=== PATIENT | female | born 1975 | race Caucasian/White ===

== ENCOUNTER 2025-03-20 08:24 | Observation (INO) ==
--- NOTE | 2025-03-05 13:20 | PAT Medication Instructions ---
Medication Instructions Date of Service March 05, 2025 Home Medications aripiprazole 2 mg tablet 2 mg PO HS aripiprazole 20 mg tablet 20 mg PO HS cholecalciferol (vitamin D3) 125 mcg (5,000 unit) tablet (Vitamin D3) 125 mcg PO QAM famotidine 20 mg tablet 20 mg PO QAM fluvoxamine 100 mg tablet 100 - 200 mg PO BID levothyroxine 50 mcg tablet 50 mcg PO QAM lisdexamfetamine 70 mg capsule (Vyvanse) 70 mg PO QAM oxycodone-acetaminophen 5 mg-325 mg tablet (Percocet) 0.5 tab PO QAM pantoprazole 40 mg tablet,delayed release 40 mg PO BID prazosin 2 mg capsule 2 mg PO HS propranolol 80 mg tablet 80 mg PO QAM zolpidem 5 mg tablet 5 mg PO HS DO NOT take the morning of surgery cholecalciferol (vitamin D3) 125 mcg (5,000 unit) tablet (Vitamin D3) 125 mcg PO QAM lisdexamfetamine 70 mg capsule (Vyvanse) 70 mg PO QAM Take morning of surgery With a small sip of water, OTHERWISE NOTHING TO EAT OR DRINK AFTER MIDNIGHT: famotidine 20 mg tablet 20 mg PO QAM fluvoxamine 100 mg tablet 100 - 200 mg PO BID levothyroxine 50 mcg tablet 50 mcg PO QAM oxycodone-acetaminophen 5 mg-325 mg tablet (Percocet) 0.5 tab PO QAM pantoprazole 40 mg tablet,delayed release 40 mg PO BID propranolol 80 mg tablet 80 mg PO QAM Take evening before surgery aripiprazole 2 mg tablet 2 mg PO HS aripiprazole 20 mg tablet 20 mg PO HS fluvoxamine 100 mg tablet 100 - 200 mg PO BID pantoprazole 40 mg tablet,delayed release 40 mg PO BID prazosin 2 mg capsule 2 mg PO HS zolpidem 5 mg tablet 5 mg PO HS Other Notes If you have any questions please call us at [phone] or [phone] or [phone] or [phone]
--- NOTE | 2025-03-06 09:06 | Anesthesiology Consultation ---
Date of Service March 06, 2025 Assessment & Plan (1) Encounter for pre-operative examination: - Check test DOS - Infectious disease screening: Per assessment on 03/06/25- No known recent infectious disease contacts or current infectious disease symptoms. - Patient concern: Patient states she grinds teeth so hard that she will break teeth and requests that bite block be used during surgery. - Patient acceptable risk for surgery pending surgeon-ordered PCP preop evaluation (Tomás GODDARD, appt 03/18). Chart Review Chart Review: Patient seen in Pre Admission Testing Teaching & Discussion Pre-Anesthesia Teaching/Discussion Notes: Instructed NPO after midnight before surgery,except medications with 15 cc of water. Medication instructions provided according to the PAT guidelines. History Surgery Operation Date: 03/20/25 11:05 Proposed Procedures p L5-S1 Decompression and Fusion - Yassine Walden DO Height/Weight Height: 5 ft 6.5 in Weight: 104.6 kg Allergies Allergy/AdvReac Type Severity Reaction Status Date / Time ciprofloxacin Allergy Severe Cannot Verified 03/06/25 09:03 take d/t paty danlos syndrome clindamycin Allergy Severe Anaphylaxis Verified 03/05/25 11:42 nickel Allergy Intermediate Ears Verified 03/06/25 09:03 "flares up" with earrings > "get infected" Penicillins Allergy Intermediate Rash, Verified 03/06/25 09:03 diarrhea [id number] Reductase Allergy Intermediate Blisters Verified 03/06/25 09:03 Inhibitor "with sun" duloxetine [From Cymbalta] AdvReac Intermediate "Made me Verified 03/06/25 09:03 manic" Medications Home Medications Medication Instructions Recorded Confirmed Last Taken aripiprazole 2 mg tablet 2 mg PO HS 03/05/25 03/05/25 Unknown aripiprazole 20 mg tablet 20 mg PO HS 03/05/25 03/05/25 Unknown cholecalciferol (vitamin D3) 125 125 mcg PO QAM 03/05/25 03/05/25 Unknown mcg (5,000 unit) tablet (Vitamin D3) famotidine 20 mg tablet 20 mg PO QAM 03/05/25 03/05/25 Unknown fluvoxamine 100 mg tablet 100 - 200 mg PO BID 03/05/25 03/05/25 Unknown levothyroxine 50 mcg tablet 50 mcg PO QAM 03/05/25 03/05/25 Unknown lisdexamfetamine 70 mg capsule 70 mg PO QAM 03/05/25 03/05/25 Unknown (Vyvanse) oxycodone-acetaminophen 5 mg-325 0.5 tab PO QAM 03/05/25 03/05/25 Unknown mg tablet (Percocet) pantoprazole 40 mg tablet,delayed 40 mg PO BID 03/05/25 03/05/25 Unknown release prazosin 2 mg capsule 2 mg PO HS 03/05/25 03/05/25 Unknown propranolol 80 mg tablet 80 mg PO QAM 03/05/25 03/05/25 Unknown zolpidem 5 mg tablet 5 mg PO HS 03/05/25 03/05/25 Unknown Imodium 1 tab PO DAILY PRN Diarrhea 03/06/25 03/06/25 Unknown Melatonin Gummy 2 gummy PO HS 03/06/25 Unknown Past Medical History Medical History Anxiety Attention deficit disorder (ADD) Bipolar disorder Depression 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 Essential tremor Hands Fibromyalgia Floyd thyroiditis History of kidney stones IBS (irritable bowel syndrome) Migraine Osteoarthritis Post traumatic stress disorder Sleep apnea Non-compliant with CPAP Temporomandibular joint disorder Wears bite block at night Exercise / Class Metabolic Activity III < 4 Walking/Shop/Light housework (one FS: No CP, + SOB) Past Family History Family History Father Family history of reaction to anesthesia "My Father stopped breathing during his gallbladder removal, roughly 4 years ago" Past Surgical History Surgical History History of anesthesia reaction "Jittery and shaky" after anesthesia History of arthroscopic surgery of shoulder x2 on left History of cholecystectomy History of colonoscopy History of esophagogastroduodenoscopy (EGD) History of gynecologic surgery Removal of IUD under anesthesia History of hip surgery Right- labrum repair History of lithotripsy History of thumb surgery Left History of toe surgery x3 B/L big toes, "bone spur removal on left 2 toes" History of wisdom tooth extraction Hx of LASIK Status post cystoscopy with ureteral stent placement Past Anesthesia History * Patient: "Jittery and shaky" after anesthesia * Father: "My Father stopped breathing during his gallbladder removal, roughly 4 years ago" History of PONV No Hx of PONV and No Hx of Motion Sickness Social History Smoking Status: Former smoker Do You Dip or Chew Tobacco: No Smoking End Date: Quit 2011 Hx Alcohol Use: Yes alcohol intake frequency: holidays/special occasions only (Annually) Hx Substance Use: Yes substance use type: marijuana (medical marijuana- vape (advised)) Review of Systems Rare palpitations. Patient denies chest pain, shortness of breath, fever, chills, cough, wheezing. Physical Exam Vital Signs BP 114/75 P 71 TEMP 98.2 SP02 98%RA RESP 16 Physical Full cervical extension range of motion. Full TMJ range of motion. TMD 3 finger breaths Mallampati Score II Dentition: missing molars, + six crowns Lungs: clear throughout to auscultation Cardiac: regular rate and rhythm, no murmurs noted Spine: normal Carotid arteries: negative bruit Extremities: no LE edema Lab Results Anesthesia Preop Results Results Anesthesia Widget: WBC 5.18 K/ul (4.8-10.8) 03/06/25 Hgb 14.9 g/dl (12.0-16.0) 03/06/25 Hct 42.7 % (37.0-47.0) 03/06/25 Plt 176 K/uL (130-400) 03/06/25 Na 140 mmol/L (136-145) 03/06/25 K 4.4 mmol/L (3.5-5.1) 03/06/25 Cl 106 mmol/L (98-107) 03/06/25 CO2 27 mmol/L (21-32) 03/06/25 BUN 21 mg/dl (6-23) 03/06/25 Creat 1.17 mg/dl (0.6-1.2) 03/06/25 Glucose Level 103 mg/dl (70-99(Fasting)) H 03/06/25 PT 10.7 Seconds (9.0-12.0) 03/06/25 PTT 25 Seconds (21-31) 03/06/25 INR 1.0 (0.9-1.1) 03/06/25 Urine Color Yellow 03/06/25 Urine Appearance Clear (Clear) 03/06/25 Urine pH 5.5 (4.5-7.5) 03/06/25 Urine Specific [place] 1.027 (1.000-1.030) 03/06/25 Urine Protein Negative (Negative) 03/06/25 Urine Glucose (UA) Negative (Negative) 03/06/25 Urine Ketones Trace (Negative) H 03/06/25 Urine Blood Negative (Negative) 03/06/25 Urine Nitrite Negative (Negative) 03/06/25 Urine Bilirubin Negative (Negative) 03/06/25 Urine Urobilinogen Negative (Negative) 03/06/25 Urine Leukocyte Esterase Negative (Negative) 03/06/25 Blood Type A Negative 03/06/25 Antibody Screen NEGATIVE 03/06/25 Testing Electrocardiogram Date: 03/06/25 SB at 54bpm. "Otherwise normal ECG" Chest X-Ray Date: 03/06/25 FINDINGS: Heart size and pulmonary vasculature are normal. No consolidation or pleural effusion. IMPRESSION: No acute findings.
[2025-03-20] MEDS: VANCOMYCIN HCL 1,500 MG in SODIUM CHLORIDE 0.9% 500 ML IV SCH (08:36)
[2025-03-20] MEDS: LR 60ML/HR IV SCH (08:48)
[2025-03-20] MEDS: ACETAMINOPHEN 500 MG TAB PO SCH (08:49)
[2025-03-20] MEDS: LR 15ML/HR IV SCH (08:49)
[2025-03-20] MEDS: GABAPENTIN 900 MG DOSE PO SCH (08:49)
[2025-03-20] MEDS: CeleBREX 200 MG CAP PO SCH (08:49)
[2025-03-20] MEDS ORDERED: DEXAMETHASONE SOD INJ 4 MG/ML VIAL ONE (09:06)
[2025-03-20] MEDS ORDERED: LIDOCAINE 2% 2 ML VIAL/AMP(20MG/ML) INFIL ONE (09:06)
[2025-03-20] MEDS ORDERED: ONDANSETRON INJ 2 MG/ML 2 ML VIAL ONE (09:06)
[2025-03-20] MEDS ORDERED: PROPOFOL IV EMULSION 10 MG/ML 20 ML VIAL IV ONE (09:06)
[2025-03-20] MEDS ORDERED: ROCURONIUM BROMIDE 10 MG/ML 5 ML VIAL IV ONE ×2 (09:06→11:41)
[2025-03-20] MEDS ORDERED: MIDAZOLAM HCL 1 MG/ML 2ML VIAL ONE (09:07)
[2025-03-20] MEDS ORDERED: MEPERIDINE HCL 25 MG/ML CARP/VIAL IV PRN (10:12)
[2025-03-20] MEDS ORDERED: ATROPINE SULFATE 0.1 MG/ML 10ML SYR IV PRN (10:12)
[2025-03-20] MEDS ORDERED: ONDANSETRON INJ 2 MG/ML 2 ML VIAL IV PRN ×2 (10:12→16:47)
[2025-03-20] MEDS ORDERED: PROMETHAZINE HCL 6.25 MG in SODIUM CHLORIDE 0.9% 50 ML IV PRN (10:12)
--- NOTE | 2025-03-20 10:39 | History & Physical Bridge Note ---
Date of Service March 20, 2025 History & Physical Bridge Note I have examined the patient, reviewed the History & Physical and in the interval since the performance of the History & Physical I have noted the following changes of clinical significance: no changes noted
--- NOTE | 2025-03-20 10:40 | History & Physical Report ---
Date of Service March 20, 2025 Assessment & Plan (1) Lumbosacral spondylosis with radiculopathy: Plan: L5-S1 decompression fusion History of Present Illness Chief Complaint: Back and bilateral leg pain Primary Care Provider: Tomás Mancera PA-C This is a 49-year-old female that has failed extensive course of nonoperative care and continues to have back and bilateral leg pain is here for surgical invention. Allergies Allergy/AdvReac Type Severity Reaction Status Date / Time ciprofloxacin Allergy Severe Cannot Verified 03/20/25 08:36 take d/t paty danlos syndrome clindamycin Allergy Severe Anaphylaxis Verified 03/20/25 08:36 nickel Allergy Intermediate Ears Verified 03/20/25 08:36 "flares up" with earrings > "get infected" Penicillins Allergy Intermediate Rash, Verified 03/20/25 08:36 diarrhea Upxevvj-[id number]-[id number] Reductase Allergy Intermediate Blisters Verified 03/20/25 08:36 Inhibitor "with sun" lidocaine Allergy "Doesn't Verified 03/20/25 08:36 work", history EDS duloxetine [From Cymbalta] AdvReac Intermediate "Made me Verified 03/20/25 08:36 manic" Home Medications Medication Instructions Recorded Confirmed Type aripiprazole 2 mg tablet 2 mg PO HS 03/05/25 03/20/25 History aripiprazole 20 mg tablet 20 mg PO HS 03/05/25 03/20/25 History cholecalciferol (vitamin D3) 125 125 mcg PO QAM 03/05/25 03/20/25 History mcg (5,000 unit) tablet (Vitamin D3) famotidine 20 mg tablet 20 mg PO QAM 03/05/25 03/20/25 History fluvoxamine 100 mg tablet 100 - 200 mg PO BID 03/05/25 03/20/25 History levothyroxine 50 mcg tablet 50 mcg PO QAM 03/05/25 03/20/25 History lisdexamfetamine 70 mg capsule 70 mg PO QAM 03/05/25 03/20/25 History (Vyvanse) oxycodone-acetaminophen 5 mg-325 0.5 tab PO QAM 03/05/25 03/20/25 History mg tablet (Percocet) pantoprazole 40 mg tablet,delayed 40 mg PO BID 03/05/25 03/20/25 History release prazosin 2 mg capsule 2 mg PO HS 03/05/25 03/20/25 History propranolol 80 mg tablet 80 mg PO QAM 03/05/25 03/20/25 History zolpidem 5 mg tablet 5 mg PO HS 03/05/25 03/20/25 History Imodium 1 tab PO DAILY PRN Diarrhea 03/06/25 03/20/25 History Melatonin Gummy 2 gummy PO HS 03/06/25 History Past Med/Surg History Problem List (Updated 03/20/25 @ 10:40 by Yassine Walden DO) Lumbosacral spondylosis with radiculopathy Encounter for pre-operative examination Misophonia Tinnitus, bilateral Hyperacusis of both ears Medical History Anxiety Attention deficit disorder (ADD) Bipolar disorder Depression 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 Essential tremor Hands Fibromyalgia Floyd thyroiditis History of kidney stones IBS (irritable bowel syndrome) Migraine Osteoarthritis Post traumatic stress disorder Sleep apnea Non-compliant with CPAP Temporomandibular joint disorder Wears bite block at night Surgical History History of anesthesia reaction "Jittery and shaky" after anesthesia History of arthroscopic surgery of shoulder x2 on left History of cholecystectomy History of colonoscopy History of esophagogastroduodenoscopy (EGD) History of gynecologic surgery Removal of IUD under anesthesia History of hip surgery Right- labrum repair History of lithotripsy History of thumb surgery Left History of toe surgery x3 B/L big toes, "bone spur removal on left 2 toes" History of wisdom tooth extraction Hx of LASIK Status post cystoscopy with ureteral stent placement Family History Father Family history of reaction to anesthesia "My Father stopped breathing during his gallbladder removal, roughly 4 years ago" Social History (System 05/16/20 @ 13:50 by Reanna Price) Smoking Status: Former smoker Tobacco Type: Cigarettes Smoking End Date: Quit 2011; Second Hand Exposure: No; Do You Dip or Chew Tobacco: No; Tobacco Cessation Education Requested by Patient: No Hx Alcohol Use: Yes Hx Substance Use: Yes Preferred Language: Chadian Communication Ability: Effective Clerical Aide Teacher Required: No Beliefs That Will Affect Care: None Current Living Situation: Alone Other Information That Helps Us Care for You: Yes (has service dog) Feels Safe at Home: Yes Safety Concerns: Feels Safe At This Time Assistive Devices: CPAP, Glasses and Other Assistive Devices Comment: service dog Physical Exam Physical Exam: Patient is alert and oriented heart regular rhythm Lungs clear Results & Data Results & Data Vital Signs (Past 12 Hours) Vital Signs Temp Pulse Resp BP Pulse Ox O2 Del Method 03/20/25 08:40 36.7 C 75 18 118/74 98 Room Air
[2025-03-20] MEDS ORDERED: DexMEDEtomidine HCL IV 100 MCG/ML VIAL IV ONE (11:39)
[2025-03-20] MEDS: BUPIVACAINE/EPINEPHRINE 0.25% 1:200,000 30 ML VIAL ONE (12:00)
[2025-03-20] MEDS ORDERED: SUGAMMADEX SODIUM 200 MG/2 ML VIAL IV ONE ×2 (12:01→12:34)
[2025-03-20] MEDS ORDERED: ePHEDrine sulfate 50 MG/5 ML SYR ONE (12:22)
[2025-03-20] MEDS: ceFAZolin 330 MG/ML 1 GM VIAL ONE (12:30)
--- NOTE | 2025-03-20 12:45 | Operative Report ---
Post Operative Report Pre & Post Diagnosis Operation Date: 03/20/25 11:05 Pre-Op Diagnosis: Lumbosacral Spondylosis with Radiculopathy Post-Op Diagnosis: Lumbosacral Spondylosis with Radiculopathy I identified the patient and participated in the time-out.: Yes Procedure Operation Date: 03/20/25 11:05 Actual Procedures #1 lumbar decompression with bilateral medial facetectomies and foraminotomies L5-S1. #2 posterior spinal fusion L5-S1. #3 placed posterior instrumentation L5-S1 using Toth. #4 interbody fusion L5-S1. #5 history of Spira 10 x 26 mm x 2 at L5-S1. #6 placement locally harvested morselized autograft posterior gutters. #7 placement fuse collagen sponge, with Koros in the posterior gutters and os design interbody space. #8 application of versa wrap of the exposed dura. Surgeon Yassine Walden, DO Harness Rigger Sarah Calderón Estimated Blood Loss 50 Findings See Below Patient is 5 foot 7 weighing over 104 kg with a BMI in excess of 36. The patient's body habitus did contribute to significant technical difficulty with positioning exposure and the procedure itself and at least 50% increased operative time. Specimens None Indications This is a 49-year-old female that presents publish diagnosis after failing extensive course of nonoperative care is here for surgical invention. Description of Procedure Patient was met with identified and form was obtained. Patient was taken to the operative suite underwent intubation placed in a prone position on the Joby table atop the Davis frame. All bony promises well-padded I suspected to ensure no external pressure placed upon them. This point lumbar spine was prepped and draped no sterile fashion. Sharp dissection with the assistance of Bovie cautery performed down to and exposing the lamina transverse processes of L5 and the sacral ala bilaterally. More caudal and cephalad fashion complete laminectomy L5 was performed including bilateral medial facetectomies and foraminotomies addressing severe neural compression. Pedicle screws were then placed in L5-S1 bilaterally with assistance of fluoroscopy and appropriate sized shea placed. By way the transforaminal portion right discectomy of L5-S1 was performed endplates corrected to subcortical bleeding bone and a 10 x 26 mm spiral cage filled with oss design bone graft tapped in position. Then proceeded to the left transforaminal region L5-S1. By way of transfer approach left discectomy was performed endplates guided to subcortical bleeding bone and a second 10 x 26 mm spiral cage filled with os design bone graft tapped in position. The rods were then compressed locked in final position bilaterally but the transverse processes of L5-S1 burred to subcortical bleeding bone. Infuse collagen sponge, with Koros and local autograft placed posterior gutters. First wrap placed over the exposed dura. 15 round CRISTY drain inserted. The incision was then closed with 1 Vicryl the fascia 2-0 Vicryl subcutaneously and 4 Monocryl for final skin closure. Steri-Strips sterile dressing placed. Patient waken taken PACU stable condition. Please note Sarah Calderón expressed that the entire procedure involved the patient positioning complex portions of the surgery and final skin closure. Im ordering 10 grams of Collagen Powder ([facility] [id number] Primary Dressing) and 10 bordered super absorbent ([facility] [id number] Secondary Dressing) to treat an incision wound that was caused by a spine procedure. The incision is approximately 2 cm(W) x 2 cm(L) down to the spinal column and epidural space 2 cm (D) in size and is a full thickness wound showing no signs of infection. Collagen comes in 1 gram packets so 10 packets were o rdered. Given the size of the wound, with moderate exudate I chose to order a 10 day supply. The patient will be provided instructions for proper application of the collagen wound kit. The patient will be asked to apply the collagen powder daily and then cover it with sterile dressings dispensed. Collagen was selected as I expect the collagen to attract monocytes and fibroblasts, act as a sacrificial substrate for MMPs, and ultimately proved a matrix for tissue and vessel growth. The collagen will act as a primary dressing in this scenario. It is medically necessary for proper healing of these wounds to improve bioavailability and contact with each wound surface, this is also to help prevent infection of wounds and promote healing ultimately leading to a better healing outcome and limit the risk of infection. I attest to the content of the Intraoperative Record and any orders documented therein. Any exceptions are noted below.
--- NOTE | 2025-03-20 13:05 | Fluoroscopy Report ---
FL lumbar spine 2-3V CLINICAL HISTORY: L5-S1 DECOMPRESSION AND FUSION WITH INTERBODY COMPARISON STUDY: None FLUOROSCOPY TIME: 22 seconds FLUOROSCOPY IMAGES: 3 EXPOSURE DOSE: 32 mGy FINDINGS: Fluoroscopy was provided for L5-S1 fusion. IMPRESSION: Intraoperative fluoroscopy. ACT 112: Negative or not required by law. Electronically signed by: Jonathan Velazco M.D. 03/20/2025 1:04 PM
--- NOTE | 2025-03-20 14:06 | Anesthesiology Progress Note ---
Date of Service March 20, 2025 Anesthesia Post Procedure Vital Signs Vital Signs: Temp Pulse Pulse Resp BP BP Pulse Ox 03/20/25 14:05 36.4 C L 83 15 129/91 98 03/20/25 13:55 86 15 135/86 98 03/20/25 13:45 70 22 120/87 99 03/20/25 13:35 76 21 144/101 H 97 03/20/25 13:25 76 18 151/89 H 100 03/20/25 13:15 82 20 143/101 H 100 03/20/25 13:09 35.8 C L 65 17 114/81 100 03/20/25 08:40 36.7 C 75 18 118/74 98 O2 Del Method O2 Flow Rate 03/20/25 14:05 Oxymask 12 03/20/25 13:55 Oxymask 12 03/20/25 13:45 Oxymask 13 03/20/25 13:35 Oxymask 15 03/20/25 13:25 Oxymask 15 03/20/25 13:15 Oxymask 15 03/20/25 13:09 Oxymask 15 03/20/25 08:40 Room Air Pain Intensity Back: Pain Intensity: 8 Transfer of Care Handoff Completed per policy Notes Mental Status: alert / awake / arousable and participated in evaluation Patient Amnestic to Procedure: Yes Nausea / Vomiting: adequately controlled Pain: adequately controlled Airway Patency, RR, SpO2: stable & adequate BP & HR: stable & adequate Hydration State: stable & adequate Anesthetic Complications: no major complications apparent
[2025-03-20] MEDS: HYDROmorphone INJ 2 MG/ML SYR/VIAL IV PRN (14:09)
[2025-03-20] MEDS ORDERED: ACETAMINOPHEN 1,000 MG/100 ML VIAL IV PRN (16:47)
[2025-03-20] MEDS ORDERED: ALUMINUM/MAGNESIUM SUSP 30 ML UDC PO PRN (16:47)
[2025-03-20] MEDS ORDERED: ONDANSETRON 4 MG OD TAB PO PRN (16:47)
[2025-03-20] MEDS ORDERED: PROMETHAZINE 12.5 MG/50.5 ML BAG IV PRN (16:47)
[2025-03-20] MEDS ORDERED: METOCLOPRAMIDE HCL INJ 5 MG/ML 2 ML VIAL IV PRN (16:47)
[2025-03-20] MEDS ORDERED: DO NOT ADMINISTER PNEUMOCOCCAL VACCINE PRN (16:47)
[2025-03-20] MEDS ORDERED: DO NOT ADMINISTER FLU VACCINE PRN (16:47)
[2025-03-20] MEDS ORDERED: SOD PHOSPHATE/SOD BIPHOSPHATE ENEMA 132 ML BTL PR PRN (16:47)
[2025-03-20] MEDS ORDERED: LORazepam 0.5 MG TAB PO PRN (16:47)
[2025-03-20] MEDS ORDERED: HYDROmorphone INJ 0.5 MG/0.5 ML SYR IV PRN (16:47)
[2025-03-20] MEDS ORDERED: NALOXONE HCL 0.4 MG/1 ML VIAL/CARP IV PRN (16:47)
[2025-03-20] MEDS ORDERED: MAGNESIUM HYDROXIDE SUSP 30 ML UDC PO PRN (16:47)
[2025-03-20] MEDS ORDERED: FAMOTIDINE 20 MG TAB PO PRN (16:47)
[2025-03-20] MEDS ORDERED: VANCOMYCIN CONSULT ACTIVE PRN (16:47)
[2025-03-20] MEDS ORDERED: LOPERAMIDE HCL 2 MG CAP PO PRN (17:33)
--- NOTE | 2025-03-20 17:49 | Hospitalist Consultation ---
Date of Consultation March 20, 2025 Assessment & Plan (1) S/P spinal surgery: (2) Lumbosacral spondylosis with radiculopathy: This is a 49yo F with PMH of Paty-Danlos syndrome, mood disorder, migraine headaches, essential tremor, hypothyroidism and other medical problems listed below who is POD # 0 s/p lumbar decompression with bilateral medial facetectomies and foraminotomies L5-S1. #2 posterior spinal fusion L5-S1. #3 placed posterior instrumentation L5-S1 using Toth. #4 interbody fusion L5-S1 by Dr. Walden. POD#0 s/p lumbar decompression with bilateral medial facetectomies and foraminotomies L5-S1, posterior spinal fusion L5-S1 by Dr. Walden Per ortho for pain control, wound care, anticoagulation and activities Monitor H&H (EBL 50 ml, pre-op hgb 14.9) with daily CBC Continue incentive spirometry, PT/OT when appropriate Judicious use of narcotics and monitoring for lethargy given multiple psych medications as below (3) Bipolar disorder: (4) Post traumatic stress disorder: (5) Depression: Stable. Continue home Fluvoxamine BID, Vyvanse, Aripiprazole HS, prazosin HS, zolpidem HS (6) Migraine: Continue prophylactic propranolol with hold parameters (7) Sleep apnea: Non compliant with CPAP DVT Ppx: SCDs per primary Code status: FULL PCP: Mike Mancera ([facility]) Dispo: Admitted to med/surg Patient seen in collaboration with Dr. Arana. Please see addendum. I spent a total of 60 minutes coordinating, documenting, and providing care for this patient excluding time spent in the performance of separately billed services or time spent by another provider/QHP. Thank you for this consultation. We will follow the patient with you during their hospital stay. You can reach a member of the [place] Hospitalist Team 11/04 via [employer]. Supervising Physician Co-Signing Physician Notes Attending addendum: The patient was seen and examined in medical floor She is status post L5-S1 decompression and fusion and placement of interbody Complains of pain at the back without any radiation of pain Remains drowsy but does not have any other significant symptoms On examination Lying in bed without any acute distress Remains hemodynamically stable and is afebrile Chest was clear to auscultate bilaterally HeartS1-S2, regular Extremitiesno edema Abdomenbenign and bowel sounds present and normal CNSalert, awake and oriented x 3 and no focal sensory or motor deficit Her pre of labs, EKG and imaging studies reviewed Remains medically stable following lumbar decompression and fusion Her other significant medical conditions as mentioned in H&P remain stable Her labs will be monitored by them hospitalist team Agree with assessment and plan as outlined above by Marisol Chavez PA-C and take the full responsibility of care in the hospital Dr Mulu Arana History of Present Illness Reason for Consultation: post op med mgmt Attending Physician: Yassine Walden DO History of Present Illness This is a 49yo F with PMH of Paty-Danlos syndrome, mood disorder, migraine headaches, essential tremor, hypothyroidism and other medical problems listed below who is POD # 0 s/p lumbar decompression with bilateral medial facetectomies and foraminotomies L5-S1. #2 posterior spinal fusion L5-S1. #3 placed posterior instrumentation L5-S1 using Toth. #4 interbody fusion L5-S1 by Dr. Walden. Patient is feeling fine postoperatively. Endorsing some surgical site discomfort but denies any pain or paresthesias in lower extremities. Resting during exam but awakens to answer questions appropriately. Denies any postop lightheadedness, chest pain, shortness of breath, nausea or vomiting. No abdominal pain, dysuria, diarrhea or constipation. Receives primary care from Mike Mancera through [facility]. Allergies Allergy/AdvReac Type Severity Reaction Status Date / Time ciprofloxacin Allergy Severe Cannot Verified 03/20/25 08:36 take d/t paty danlos syndrome clindamycin Allergy Severe Anaphylaxis Verified 03/20/25 08:36 nickel Allergy Intermediate Ears Verified 03/20/25 08:36 "flares up" with earrings > "get infected" Penicillins Allergy Intermediate Rash, Verified 03/20/25 08:36 diarrhea Ritqkra-RHE-YgL Reductase Allergy Intermediate Blisters Verified 03/20/25 08:36 Inhibitor "with sun" lidocaine Allergy "Doesn't Verified 03/20/25 08:36 work", history EDS duloxetine [From Cymbalta] AdvReac Intermediate "Made me Verified 03/20/25 08:36 manic" Home Medications Medication Instructions Recorded Confirmed Type aripiprazole 2 mg tablet 2 mg PO HS 03/05/25 03/20/25 History aripiprazole 20 mg tablet 20 mg PO HS 03/05/25 03/20/25 History cholecalciferol (vitamin D3) 125 125 mcg PO QAM 03/05/25 03/20/25 History mcg (5,000 unit) tablet (Vitamin D3) famotidine 20 mg tablet 20 mg PO QAM 03/05/25 03/20/25 History fluvoxamine 100 mg tablet 100 - 200 mg PO BID 03/05/25 03/20/25 History levothyroxine 50 mcg tablet 50 mcg PO QAM 03/05/25 03/20/25 History lisdexamfetamine 70 mg capsule 70 mg PO QAM 03/05/25 03/20/25 History (Vyvanse) oxycodone-acetaminophen 5 mg-325 0.5 tab PO QAM 03/05/25 03/20/25 History mg tablet (Percocet) pantoprazole 40 mg tablet,delayed 40 mg PO BID 03/05/25 03/20/25 History release prazosin 2 mg capsule 2 mg PO HS 03/05/25 03/20/25 History propranolol 80 mg tablet 80 mg PO QAM 03/05/25 03/20/25 History zolpidem 5 mg tablet 5 mg PO HS 03/05/25 03/20/25 History Imodium 1 tab PO DAILY PRN Diarrhea 03/06/25 03/20/25 History Melatonin Gummy 2 gummy PO HS 03/06/25 03/20/25 History Patient History Medical History Osteoarthritis History of kidney stones IBS (irritable bowel syndrome) Floyd thyroiditis Fibromyalgia Temporomandibular joint disorder Wears bite block at night Attention deficit disorder (ADD) Post traumatic stress disorder Depression Bipolar disorder Anxiety Essential tremor Hands Migraine Sleep apnea Non-compliant with CPAP Surgical History History of anesthesia reaction "Jittery and shaky" after anesthesia History of gynecologic surgery Removal of IUD under anesthesia History of toe surgery x3 B/L big toes, "bone spur removal on left 2 toes" History of thumb surgery Left History of arthroscopic surgery of shoulder x2 on left History of hip surgery Right- labrum repair Status post cystoscopy with ureteral stent placement History of lithotripsy History of cholecystectomy History of colonoscopy History of esophagogastroduodenoscopy (EGD) History of wisdom tooth extraction Hx of LASIK Family History Father Family history of reaction to anesthesia "My Father stopped breathing during his gallbladder removal, roughly 4 years ago" Social History Smoking Status: Former smoker Tobacco Type: Cigarettes Smoking End Date: Quit 2011; Second Hand Exposure: No; Do You Dip or Chew Tobacco: No; Tobacco Cessation Education Requested by Patient: No Hx Alcohol Use: Yes Hx Substance Use: Yes Preferred Language: Wallisian Communication Ability: Effective [employer] Unified Communications Engineer Required: No Beliefs That Will Affect Care: None Current Living Situation: Alone Other Information That Helps Us Care for You: Yes (has service dog) Feels Safe at Home: Yes Safety Concerns: Feels Safe At This Time Assistive Devices: CPAP, Glasses and Other Assistive Devices Comment: service dog Review of Systems Review of Systems: At least ten systems reviewed and negative except as noted in the HPI. Physical Exam Physical Exam: General Appearance: WD/WN, vitals as above, NAD, sitting up in bed, pleasant, sleeping but awakens to answer questions appropriately Head: normocephalic, atraumatic Eyes: normal inspection ENT: external ear and nose normal, oropharynx normal Neck: normal visual inspection Respiratory: normal respiratory effort, lungs clear to auscultation Cardiovascular: regular rate, rhythm Abdomen/GI: normal bowel sounds, soft, nontender Extremities/Musculoskeletal: + Spinal dressing c/d/i, CRISTY drain visualized. No cyanosis or clubbing, extremities motor strength 5/5, +SCDs Neurologic: PERRL, CN's II-XI intact bilaterally Psychiatric: A+Ox3, euthymic affect Skin: normal color, warm/dry Results & Data Results & Data Vital Signs (Past 12 Hours) Vital Signs Temp Pulse Pulse Resp BP BP Pulse Ox 03/20/25 17:16 03/20/25 17:15 36.7 C 79 18 116/76 94 03/20/25 16:48 36.7 C 89 16 123/84 94 03/20/25 16:25 80 16 133/88 93 03/20/25 16:10 82 17 133/89 92 03/20/25 16:00 86 19 129/96 93 03/20/25 15:50 84 21 132/95 93 03/20/25 15:40 36.6 C 79 21 134/82 93 03/20/25 15:30 76 12 130/80 93 03/20/25 15:20 85 17 131/88 93 03/20/25 15:05 85 22 112/81 93 03/20/25 14:55 84 16 117/82 93 03/20/25 14:45 82 23 133/82 92 03/20/25 14:35 82 22 133/87 92 03/20/25 14:25 84 17 122/87 96 03/20/25 14:15 82 12 120/84 96 03/20/25 14:05 36.4 C L 83 15 129/91 98 03/20/25 13:55 86 15 135/86 98 03/20/25 13:45 70 22 120/87 99 03/20/25 13:35 76 21 144/101 H 97 03/20/25 13:25 76 18 151/89 H 100 03/20/25 13:15 82 20 143/101 H 100 03/20/25 13:09 35.8 C L 65 17 114/81 100 03/20/25 08:40 36.7 C 75 18 118/74 98 O2 Del Method O2 Flow Rate 03/20/25 17:16 Nasal Cannula 2 03/20/25 17:15 Nasal Cannula 2 03/20/25 16:48 Nasal Cannula 2 03/20/25 16:25 Nasal Cannula 03/20/25 16:10 Nasal Cannula 2 03/20/25 16:00 Nasal Cannula 2 03/20/25 15:50 Nasal Cannula 2 03/20/25 15:40 Nasal Cannula 2 03/20/25 15:30 Nasal Cannula 2 03/20/25 15:20 Nasal Cannula 2 03/20/25 15:05 Nasal Cannula 2 03/20/25 14:55 Nasal Cannula 2 03/20/25 14:45 Nasal Cannula 2 03/20/25 14:35 Nasal Cannula 2 03/20/25 14:25 Oxymask 8 03/20/25 14:15 Oxymask 12 03/20/25 14:05 Oxymask 03/20/25 13:55 Oxymask 12 03/20/25 13:45 Oxymask 13 03/20/25 13:35 Oxymask 15 03/20/25 13:25 Oxymask 15 03/20/25 13:15 Oxymask 15 03/20/25 13:09 Oxymask 15 03/20/25 08:40 Room Air
[2025-03-20] MEDS: HYDROmorphone INJ 1 MG/ML SYRINGE IV PRN (18:50)
[2025-03-20] MEDS: PRAZOSIN HCL 1 MG CAP PO SCH (21:19)
[2025-03-20] MEDS: ZOLPIDEM TARTRATE 5 MG TAB PO SCH (21:20)
[2025-03-20] MEDS: DOCUSATE SODIUM/SENNA 50/8.6MG TAB PO SCH (21:24)
[2025-03-21] MEDS: VANCOMYCIN HCL 1,500 MG in SODIUM CHLORIDE 0.9% 500 ML IV SCH (01:35)
[2025-03-21] MEDS: POLYETHYLENE (MIRALAX) 17 GM PACK PO SCH (05:25)
[2025-03-21] MEDS: LEVOTHYROXINE SODIUM 50 MCG TABLET PO SCH (05:26)
[2025-03-21 06:36] LABS: Hematocrit (blood only) 37.0 % (37.0-47.0); Hemoglobin 12.8 g/dl (12.0-16.0); Immature Granulocytes # (auto) 0.07 K/uL (0.01-0.20); Immature Granulocytes % (auto) 0.6 %; Mean Corpuscular Hemoglobin 29.4 pg (25.0-34.0); Mean Corpuscular Volume 85.1 fL (80.0-100.0); Platelet Count 161 K/uL (130-400); RDW Standard Deviation 37.0 fL (36.4-46.3); Red Blood Count 4.35 M/uL (4.20-5.40); White Blood Count 10.77 K/ul (4.8-10.8)
[2025-03-21 06:45] LABS: Anion Gap 6.0 (3-11); Calcium 8.6 mg/dl (8.6-10.3); Carbon Dioxide 25.0 mmol/L (21-32); Chloride 109.0 mmol/L (98-107); Potassium 4.4 mmol/L (3.5-5.1); Sodium 140.0 mmol/L (136-145)
[2025-03-21 06:51] LABS: Blood Urea Nitrogen 16.0 mg/dl (6-23); Creatinine Clr Calc Pharmacy 91.0 ml/min; Glucose 163.0 mg/dl (70-99(Fasting))
[2025-03-21] MEDS: CHOLECALCIFEROL 125 MCG (5,000 UNITS) TAB PO SCH (07:30)
[2025-03-21] MEDS: PROPRANOLOL HCL LA 80 MG CAPCR PO SCH (07:31)
[2025-03-21] MEDS: dexAMETHasone 6 MG in SYRINGE 0 ML IV SCH (07:32)
[2025-03-21] MEDS: FAMOTIDINE 20 MG TAB PO SCH (07:36)
--- NOTE | 2025-03-21 10:50 | Hospitalist Progress Note ---
Date of Service March 21, 2025 Assessment & Plan (1) S/P spinal surgery: (2) Lumbosacral spondylosis with radiculopathy: Plan: 49 year old woman with PMH of Paty-Danlos syndrome, mood disorder, migraine headaches, essential tremor, hypothyroidism who is s/p lumbar decompression with bilateral medial facetectomies and foraminotomies L5-S1. #2 posterior spinal fusion L5-S1. #3 placed posterior instrumentation L5-S1 using Toth. #4 interbody fusion L5-S1 by Dr. Walden. POD#1 S/p lumbar decompression with bilateral medial facetectomies and foraminotomies L5-S1, posterior spinal fusion L5-S1 by Dr. Walden Pain control Hb 12.8 this AM PT/OT Activity per Primary Surgeon (3) Bipolar disorder: (4) Post traumatic stress disorder: (5) Depression: Plan: Stable. Continue home Fluvoxamine BID, Vyvanse, Aripiprazole HS, prazosin HS, zolpidem HS (6) Migraine: Plan: Continue prophylactic propranolol with hold parameters (7) Sleep apnea: Plan: Non compliant with CPAP DVT Ppx: SCDs per primary Code status: FULL PCP: Mike Mancera ([facility]) I spent a total of 45 minutes coordinating, documenting and providing care for this patient excluding time spent in performance of separately billed services Admission and Anticipated Discharge Date Admission Date: March 20, 2025 Subjective Patient seen and examined Reports pain at surgical site Has not had a BM but passing flatus No other complaints at this time Physical Exam Constitutional: + well hydrated; no acute distress Eyes: PERRL, conjunctivae normal, anicteric sclerae ENMT: external ear and nose normal, oropharynx normal Respiratory: normal respiratory effort, lungs clear to auscultation Cardiovascular: Rate/Rhythm: regular rate and regular rhythm Gastrointestinal (Abdomen): normal bowel sounds, soft, nontender, no hepatosplenomegaly Musculoskeletal: Clean dressing over lower back with drain in situ Neurologic: PERRL, EOMI, accommodation nl, no face palsy, no dysarthria Psychiatric: A+Ox3, euthymic affect Results & Data Results & Data Vital Signs (Past 12 Hours) Vital Signs Temp Pulse Resp BP Pulse Ox O2 Del Method O2 Flow Rate 03/21/25 07:46 36.7 C 70 16 104/69 96 Room Air 03/21/25 03:20 92/58 L 03/21/25 03:16 88/56 L 03/21/25 03:13 36.6 C 73 18 87/51 L 94 Nasal Cannula 2 03/20/25 23:31 36.7 C 65 18 126/90 95 Nasal Cannula 2 Laboratory Results Abnormal lab results 03/21/25 Range/Units 05:51 Neut # (Auto) 9.42 H (1.40-6.50) K/uL Lymph # (Auto) 0.85 L (1.20-3.40) K/uL Chloride 109 H (98-107) mmol/L Glucose 163 H (70-99(Fasting)) mg/dl
--- NOTE | 2025-03-21 11:13 | Orthopedic Progress Note ---
Date of Service March 21, 2025 Assessment & Plan (1) Lumbosacral spondylosis with radiculopathy: Plan: At this time we will initiate physical therapy monitor CRISTY operatively discharge home in the next few days. Admission and Anticipated Discharge Date Admission Date: March 20, 2025 Subjective Patient is back pain is controlled leg symptoms improved. She has been up and ambulating. Physical Exam Physical Exam: Patient is currently in bed. Discussed trying to testing. Appears comfortable. Results & Data Vital Signs (Past 12 Hours) Vital Signs Temp Pulse Resp BP Pulse Ox O2 Del Method O2 Flow Rate 03/21/25 07:46 36.7 C 70 16 104/69 96 Room Air 03/21/25 03:20 92/58 L 03/21/25 03:16 88/56 L 03/21/25 03:13 36.6 C 73 18 87/51 L 94 Nasal Cannula 2 03/20/25 23:31 36.7 C 65 18 126/90 95 Nasal Cannula 2 Queries Orthopedic Spine Obesity: Yes
[2025-03-21] MEDS: diphenhydrAMINE Capsule 25 MG CAP PO PRN (19:19)
[2025-03-21] MEDS: ACETAMINOPHEN 500 MG TAB PO PRN (21:10)
--- NOTE | 2025-03-22 08:14 | Orthopedic Progress Note ---
Date of Service March 22, 2025 Assessment & Plan (1) Lumbosacral spondylosis with radiculopathy: Plan: At this time we will continue to advance physical therapy. Anticipate discharge home tomorrow. Admission and Anticipated Discharge Date Admission Date: March 20, 2025 Subjective Patient's back pain is controlled leg symptoms improved. She is tolerating physical therapy. Physical Exam Physical Exam: Patient has good strength testing. Appears comfortable. Results & Data Vital Signs (Past 12 Hours) Vital Signs Temp Pulse Resp BP Pulse Ox O2 Del Method 03/22/25 07:44 36.4 C L 70 18 118/80 95 Room Air Queries Orthopedic Spine Obesity: Yes
[2025-03-22] MEDS: LISDEXAMFETAMINE DIMESYLATE 70 MG PO SCH (08:24)
[2025-03-22] MEDS: LISDEXAMFETAMINE 70 MG PO SCH (09:09)
--- NOTE | 2025-03-22 10:35 | Hospitalist Progress Note ---
Date of Service March 22, 2025 Assessment & Plan (1) S/P spinal surgery: (2) Lumbosacral spondylosis with radiculopathy: Plan: 49 year old woman with PMH of Paty-Danlos syndrome, mood disorder, migraine headaches, essential tremor, hypothyroidism who is s/p lumbar decompression with bilateral medial facetectomies and foraminotomies L5-S1. #2 posterior spinal fusion L5-S1. #3 placed posterior instrumentation L5-S1 using Toth. #4 interbody fusion L5-S1 by Dr. Walden. POD#2 S/p lumbar decompression with bilateral medial facetectomies and foraminotomies L5-S1, posterior spinal fusion L5-S1 by Dr. Walden Pain control Post op Hb 12.8 PT/OT Activity per Primary Surgeon (3) Bipolar disorder: (4) Post traumatic stress disorder: (5) Depression: Plan: Stable. Continue home Fluvoxamine BID, Vyvanse, Aripiprazole HS, prazosin HS, zolpidem HS (6) Migraine: Plan: Continue prophylactic propranolol with hold parameters (7) Sleep apnea: Plan: Non compliant with CPAP DVT Ppx: SCDs per primary Code status: FULL PCP: Mike Mancera ([facility]) I spent a total of 35 minutes coordinating, documenting and providing care for this patient excluding time spent in performance of separately billed services Admission and Anticipated Discharge Date Admission Date: March 20, 2025 Subjective Patient seen and examined Reports surgical site pain is well controlled Had a BM No new complaints Physical Exam Constitutional: + well hydrated; no acute distress Eyes: PERRL, conjunctivae normal, anicteric sclerae ENMT: external ear and nose normal, oropharynx normal Respiratory: normal respiratory effort, lungs clear to auscultation Cardiovascular: Rate/Rhythm: regular rate and regular rhythm Gastrointestinal (Abdomen): normal bowel sounds, soft, nontender, no hepatosplenomegaly Musculoskeletal: Clean dressing over surgical site. Drain in situ Neurologic: PERRL, EOMI, accommodation nl, no face palsy, no dysarthria Psychiatric: A+Ox3, euthymic affect Results & Data Results & Data Vital Signs (Past 12 Hours) Vital Signs Temp Pulse Resp BP Pulse Ox O2 Del Method 03/22/25 07:44 36.4 C L 70 18 118/80 95 Room Air
[2025-03-22] MEDS ORDERED: Nursing to Pharmacy Communication SCH (17:45)
[2025-03-23] MEDS ORDERED: LISDEXAMFETAMINE DIMESYLATE 70 MG PO SCH (07:00)
[2025-03-23 07:04] VITALS: RESP 16; TEMP 97.9; O2SAT 93
[2025-03-23 08:36] VITALS: BP 126/83; PULSE 66
--- NOTE | 2025-03-23 10:31 | Hospitalist Progress Note ---
Date of Service March 23, 2025 Assessment & Plan (1) S/P spinal surgery: (2) Lumbosacral spondylosis with radiculopathy: Plan: 49 year old woman with PMH of Paty-Danlos syndrome, mood disorder, migraine headaches, essential tremor, hypothyroidism who is s/p lumbar decompression with bilateral medial facetectomies and foraminotomies L5-S1. #2 posterior spinal fusion L5-S1. #3 placed posterior instrumentation L5-S1 using Toth. #4 interbody fusion L5-S1 by Dr. Walden. POD#3 S/p lumbar decompression with bilateral medial facetectomies and foraminotomies L5-S1, posterior spinal fusion L5-S1 by Dr. Walden Pain control Post op Hb 12.8 PT/OT Activity per Primary Surgeon (3) Bipolar disorder: (4) Post traumatic stress disorder: (5) Depression: Plan: Stable. Continue home Fluvoxamine BID, Vyvanse, Aripiprazole HS, prazosin HS, zolpidem HS (6) Migraine: Plan: Continue prophylactic propranolol with hold parameters (7) Sleep apnea: Plan: Non compliant with CPAP Stable for discharge I spent a total of 35 minutes coordinating, documenting and providing care for this patient excluding time spent in performance of separately billed services Admission and Anticipated Discharge Date Admission Date: March 20, 2025 Subjective Patient seen and examined Reports surgical site pain is much improved No other complaints Physical Exam Constitutional: + well hydrated; no acute distress Eyes: PERRL, conjunctivae normal, anicteric sclerae ENMT: external ear and nose normal, oropharynx normal Respiratory: normal respiratory effort, lungs clear to auscultation Cardiovascular: Rate/Rhythm: regular rate and regular rhythm Gastrointestinal (Abdomen): normal bowel sounds, soft, nontender, no hepatosplenomegaly Musculoskeletal: Clean dressing over surgical site Neurologic: PERRL, EOMI, accommodation nl, no face palsy, no dysarthria Psychiatric: A+Ox3, euthymic affect Results & Data Results & Data Vital Signs (Past 12 Hours) Vital Signs Temp Pulse Resp BP BP Pulse Ox O2 Del Method 03/23/25 08:35 66 126/83 03/23/25 07:04 36.6 C 59 L 16 138/85 93 Room Air
--- NOTE | 2025-03-23 10:36 | Discharge Summary ---
Date of Service March 23, 2025 Admission HPI Per Admitting Provider This is a 49-year-old female that has failed extensive course of nonoperative care and continues to have back and bilateral leg pain is here for surgical invention. Principal Diagnosis Lumbar spondylosis with radiculopathy Discharge Data Allergies Allergy/AdvReac Type Severity Reaction Status Date / Time ciprofloxacin Allergy Severe Cannot Verified 03/20/25 08:36 take d/t suellen danlos syndrome clindamycin Allergy Severe Anaphylaxis Verified 03/20/25 08:36 nickel Allergy Intermediate Ears Verified 03/20/25 08:36 "flares up" with earrings > "get infected" Penicillins Allergy Intermediate Rash, Verified 03/20/25 08:36 diarrhea [id number] Reductase Allergy Intermediate Blisters Verified 03/20/25 08:36 Inhibitor "with sun" lidocaine Allergy "Doesn't Verified 03/20/25 08:36 work", history EDS duloxetine [From Cymbalta] AdvReac Intermediate "Made me Verified 03/20/25 08:36 manic" Consultations 03/20/25 16:47 Consult Hospitalist Routine Procedures Performed Operation Date: 03/20/25 11:05 Actual Procedures p L5-S1 Decompression and Fusion, Placement of Interbody (Not Applicable) - Yassine Walden DO Ordered Studies 03/20/25 10:05 FL lumbar spine 2-3V Routine Hospital Course (1) Lumbosacral spondylosis with radiculopathy: Patient underwent lumbar decompression fusion tolerated this well was taken orthopedic for postoperative. Postop patient progressed appropriate. Marked improvement of her ambulation and leg pain. CRISTY drain decreasing properly. Excellent strength testing. Subsidy discharged home. Discharge orders and instructions are on the chart for further review. Total Time Total Time Spent Total Time Spent (In Minutes): 20 minutes Discharge Plan Discharge Items Patient Disposition: Home - Self-Care Reason For Visit: Lumbosacral Spondylosis with Radiculopathy, Spinal Discharge Diagnosis: Lumbosacral spondylosis with radiculopathy Activity: As commented below Non-emergency contact: Primary Care Provider Call non-emergency contact if: you have any medication questions Follow-up/Referrals: Tomás Mancera PA-C [Primary Care Provider] - Diet: Regular Addtl Attending Provider Instructions: ACTIVITY RECOMMENDATIONS: SELF CARE INSTRUCTIONS AFTER THORACIC/LUMBAR FUSIONS 1. You may walk to your tolerance. It is good exercise for your legs and back. Expect some back and intermittent leg aches and pains. 2. You may perform "counter-top" level activities (make a sandwich, francisco javier with a project, etc.). 3. No bending or lifting of more than 10 pounds or back twisting of any nature (roll like a log when turning in bed). 4. You may ride in a car for 20-30 minutes at a time. No driving until after your first visit with your doctor. 5. Frequent changes of position and restricting sitting to 30 minutes at a time will help limit the amount of back spasms and stiffness you may experience. 6. You may discontinue the use of ambulatory aids (cane, crutches, etc.) once your strength and confidence allow. 7. You may singing teacher the shower and let water strike your incision when you arrive home at least once daily. Do not take a tub bath, sit in a hot tub or go into a swimming pool until after your first recheck in the office. 8. You may resume previous diet. SPECIAL CARE INSTRUCTIONS: VERY IMPORTANT TO READ AND REVIEW A. Your surgical incision has been closed with a cosmetic suture under the skin that will dissolve in about 6 weeks. In 14 days, you can use a pair of clean scissors and cut the suture that is left outside of the skin at the ends of your incision. 1. The small skin tapes can be removed 7 days after surgery if they have not fallen off by that point. 2. You may keep the wound open to air as much as possible to promote healing after post-op day number 5 unless told otherwise by your doctor. 3. If you think the wound looks like it is becoming infected (redness or worsening drainage) and/or you are experiencing fever, chill or worsening back pain and muscle spasms, contact the office so that we may evaluate you as soon as possible. B. Complications are uncommon, but please contact us if you have any signs or symptoms of: 1. wound infection (fever higher than 102.5 degrees F, redness, separation of wound, drainage, or increasing pain from the incision) 2. blood clots in legs (pain, swelling, redness and warmth in legs) 3. urinary tract infection (fever higher than 102.5 degrees F, burning upon urination or increased frequency of urination) 4. nerve problems (inability to walk on your toes or heels, numbness, loss of bowel or bladder control) 5. any other symptoms that concern you C. Please call the office at if you have any concerns or questions about your operation or recovery. D. No smoking! Smoking drastically decreases the chance of a solid fusion. E. Do not take any anti-inflammatory medications (Indocin, Advil, Motrin, Aspirin, Naprosyn, etc.) as these may inhibit the chance of a solid fusion. Tylenol is okay to take for pain. MANAGING PAIN AFTER SPINAL SURGERY 1. Narcotic medication is intended for short-term use and will be provided for surgical pain. Surgical pain usually lasts for a period of 4-6 weeks. Narcotic medication includes Percocet, Vicodin, Darvocet, Tylenol #3 or Lortab. 2. Longer-term pain is more appropriately treated with non-narcotic medication such as Tylenol ES. 3. Muscle spasm is not appropriately treated with narcotics. Muscle relaxers such as Soma, Flexeril or Skelaxin can be used along with Tylenol ES. 4. Remember that we all live with some "aches and pains". This is not unusual or uncommon after an injury or as we get older. a. Back pain is expected and may include muscle spasms for 4 to 6 weeks after surgery. The pain should gradually improve. If the pain worsens for no apparent reason, please contact the office. b. Intermittent leg pain may also be experienced and should not be concerned about unless it worsens for no apparent reason. If so, please contact the office. 5. We will provide appropriate medication within the normal guidelines of their prescribed use. We will also be very cautious and aware of potential abuse and extended duration of patients' medication needs. a. Pain medications are for your comfort and to assist with sleep and rest so that the tissue can heal. They are not provided in order to return to normal activity and should not be used through the day. To do so or worsening pain at night can result from ongoing tissue damage and development of tolerance to the prescribed medicine. 6. Please allow 2-3 days to process refills. Prescriptions will not be mailed but must be picked up at the office. FOLLOW UP VISIT: Keep your scheduled follow-up appointment. Any questions, please call the office at . Pending Studies at Discharge: No Stand-Alone Forms: My [facility], Smoking Cessation Medications and DC Order Prescriptions: New tramadol 50 mg tablet 50 mg PO Q6H PRN (Reason: pain, moderate) Qty: 30 0RF oxycodone 5 mg tablet 5 mg PO Q6H PRN (Reason: pain) Qty: 30 0RF Continued propranolol 80 mg Tablet 80 mg PO QAM oxycodone-acetaminophen [Percocet] 5-325 mg Tablet 0.5 tab PO QAM famotidine 20 mg Tablet 20 mg PO QAM fluvoxamine 100 mg Tablet 100 - 200 mg PO BID Rx Instructions: 100mg in am/200mg at hs levothyroxine 50 mcg Tablet 50 mcg PO QAM pantoprazole 40 mg Tablet,Delayed Release (Dr/Ec) 40 mg PO BID zolpidem 5 mg Tablet 5 mg PO HS prazosin 2 mg Capsule 2 mg PO HS aripiprazole 20 mg Tablet 20 mg PO HS Rx Instructions: takes with 2mg to equal 22mg at hs aripiprazole 2 mg Tablet 2 mg PO HS Rx Instructions: takes with 20mg to equal 22mg lisdexamfetamine [Vyvanse] 70 mg Capsule 70 mg PO QAM cholecalciferol (vitamin D3) [Vitamin D3] 125 mcg (5,000 unit) Tablet 125 mcg PO QAM Melatonin Gummy 2 gummy PO HS Imodium 1 tab PO DAILY PRN (Reason: Diarrhea) Discharge Orders: Discharge Order (Routine); Ordered 03/23/25 Ordered By: Yassine Walden Admission Data Admit Date/Time: 03/20/25 15:23 Attending Provider: Yassine Walden Admit Provider: Yassine Walden Primary Care Provider: Tomás Mancera Other Providers: Lakia Wright
== END 2025-03-23 12:52 | disposition home or self-care (01) | DRG 940 ==
LOC: ASU 08:24 → 3W 15:23 → INTOOBSV 15:23